=== PATIENT | male | born 1970 | race Caucasian/White ===

== ENCOUNTER 2022-04-24 07:50 | Outpatient (CLI) | payer OTHER | END 2022-04-24 07:51 | disposition home or self-care (01) | LOC: LABBT 07:50 | PROVIDERS: ATTEND Ophthalmology Retina Specialist | DX: Z20.822 Contact with and (suspected) exposure to COVID-19 (principal) | CPT/HCPCS: 87811 ==

== ENCOUNTER 2022-04-29 09:27 | Day surgery (SDC) | payer OTHER ==
[2022-04-25 16:04] VITALS: BMI 43.2
[~2022-04-29 09:27] MED LIST: EPINEPHrine 0.3 MG in Ophthalmic Irrigation Solution 500 ML IRR SCH; Midazolam HCl 2 mg/2 ml Vial ONE; fentaNYL Citrate/PF 100 MCG/2 ML SYRINGE ONE
[2022-04-29] MEDS ORDERED: Phenylephrine 2.5% Ophth Soln 5 ML BOT ONE (10:25)
[2022-04-29] MEDS ORDERED: Cyclopentolate 1% Opth Drop 2 ML BOT ONE (10:25)
[2022-04-29] MEDS ORDERED: Bupivacaine 0.75% 10 ML VIAL ONE (11:42)
[2022-04-29] MEDS ORDERED: Lidocaine 1% MPF 2 ML VIAL ONE (11:42)
[2022-04-29] MEDS ORDERED: CEFAZOLIN 1 GM VIAL ONE (11:42)
[2022-04-29] MEDS ORDERED: Lidocaine 4% PF 5 ML AMP ONE (11:42)
[2022-04-29] MEDS ORDERED: PROPOFOL 200 MG/20 ML VIAL ONE (11:42)
[2022-04-29] MEDS ORDERED: Triamcinolone 40 MG/ML VIAL ONE (11:42)
[2022-04-29] MEDS ORDERED: Maxitrol 0.1% Opth Oint 3.5 GM TUBE ONE (11:42)
== END 2022-04-29 13:51 | disposition home or self-care (01) ==
LOC: SDC 09:27
PROVIDERS: ATTEND Ophthalmology Retina Specialist
DX: H33.41 Traction detachment of retina, right eye (principal); I10 Essential (primary) hypertension; E78.5 Hyperlipidemia, unspecified; G47.30 Sleep apnea, unspecified; E66.01 Morbid (severe) obesity due to excess calories; Z68.41 Body mass index [BMI] 40.0-44.9, adult; Z79.84 Long term (current) use of oral hypoglycemic drugs; Z79.899 Other long term (current) drug therapy
CPT/HCPCS: J0171; J0690; J2250; J2704; J3301; J3490